=== PATIENT | male | born 1970 | race Caucasian/White ===

== ENCOUNTER → 2017-05-24 | Outpatient (CLI) | payer OTHER ==
[2017-05-24 09:35] LABS: BASO % 0.5 %; BASO ABS # 0.03 K/uL (0-0.2); COMPLETE YES; EOS % 2.2 %; HEMATOCRIT 44.2 % (42-52); IG% 0.5 %; LYMPH % 24.5 %; LYMPH ABS # 1.58 K/uL (1.2-3.4); MEAN CELL VOLUME 86.8 fL (80-100); MEAN CORPUSCULAR HEMOGLOBIN 30.1 pg (25-34); MEAN CORPUSCULAR HGB CONC 34.6 g/dl (32-36); MEAN PLATELET VOLUME 10.1 fL (7.4-10.4); MONO % 9.4 %; NEUT % 62.9 %; PLATELET COUNT 269 K/uL (130-400); RED BLOOD COUNT 5.09 M/uL (4.7-6.1); WHITE BLOOD COUNT 6.46 K/uL (4.8-10.8)
[2017-05-24 09:46] LABS: BLOOD UREA NITROGEN 19 mg/dl (7-18); BUN/CREATININE RATIO 20.3 (10-20); CALCIUM 8.9 mg/dl (8.5-10.1); CARBON DIOXIDE 28 mmol/L (21-32); CHLORIDE 107 mmol/L (98-107); CREATININE 0.95 mg/dl (0.60-1.40); GLUCOSE 101 mg/dl (70-99); POTASSIUM 4.3 mmol/L (3.5-5.1); SODIUM 141 mmol/L (136-145)
[2017-05-24 09:49] LABS: CHOLESTEROL 169 mg/dl (0-200); HDL CHOLESTEROL 56 mg/dl; LDL CHOLESTEROL CALCULATED 99 mg/dl; TRIGLYCERIDES 72 mg/dl (0-150); VERY LOW DENSITY LIPOPROT CALC 14 mg/dl
== END | disposition home or self-care (01) ==
LOC: C.LAB1850 07:27
PROVIDERS: ATTEND Internal Medicine
DX: M25.50 Pain in unspecified joint (principal); R79.9 Abnormal finding of blood chemistry, unspecified

== ENCOUNTER 2024-03-27 07:51 | Observation (INO) ==
--- NOTE | 2024-03-27 08:02 | Emergency Department Note ---
History of Present Illness General Chief complaint: Penis Pain Stated complaint: infection getting worse Time Seen by Provider: 03/27/24 08:00 History of Present Illness This is a 53-year-old male who presents to the emergency department via private vehicle with complaints of "pain in penis". Per review of yesterdays visit note patient was engaging in sexual intercourse on Sunday and believes sustained a small tear/laceration to the right side just proximal to the glans. Patient notes there was pain to that area as well as swelling and redness. He notes that it was traveling proximally. No urgency or frequency but does have some dysuria. Now with lower abd pain/suprapubic abd pain. No nausea, vomiting or diarrhea. Patient was here in the ED yesterday and was started on cephalexin and Bactrim. On yesterday's visit it appears ED attending did review case with urology. Patient now notes trouble urinating. Patient denies any new soaps, detergents or other substances that could have caused allergic reaction but does note that he did apply Neosporin yesterday to the wound. Home Medications Medication Instructions Recorded Confirmed Type loratadine 10 mg tablet (Claritin) 10 mg PO DAILY PRN allergy symptoms 08/28/19 03/27/24 History apremilast 30 mg tablet (Otezla) 30 mg PO BID 04/27/21 03/27/24 History cholecalciferol (vitamin D3) 25 25 mcg PO QAM 06/17/21 03/27/24 History mcg (1,000 unit) tablet (Vitamin D3) fluticasone propionate 50 1 - 2 spray intranasal HS 09/21/21 03/27/24 History mcg/actuation nasal spray,suspension (Flonase Allergy Relief) vitamin B complex 1 tab PO QAM 09/21/21 03/27/24 History allopurinol 300 mg tablet 300 mg PO QAM 11/22/21 03/27/24 History triamterene 37.5 1 tab PO QAM #90 tabs 03/15/23 03/27/24 Rx mg-hydrochlorothiazide 25 mg tablet esomeprazole magnesium 40 mg 40 mg PO BID 90 days #180 caps 06/26/23 03/27/24 Rx capsule,delayed release ascorbic acid (vitamin C) 500 mg 500 mg PO DAILY 03/26/24 03/27/24 History tablet (Vitamin C) cephalexin 500 mg capsule 500 mg PO Q6H 10 days #40 caps 03/26/24 03/27/24 Rx sulfamethoxazole 800 1 tab PO Q12H #20 tabs 03/26/24 03/27/24 Rx mg-trimethoprim 160 mg tablet (Bactrim DS) Allergies Allergy/AdvReac Type Severity Reaction Status Date / Time No Known Drug Allergies Allergy Verified 03/27/24 10:37 Past Med/Surg History Problem List (Updated 03/27/24 @ 11:19 by Taj Joe MD) Penile cellulitis (Acute) Pain in penis (Acute) Cellulitis (Acute) Current use of proton pump inhibitor Psoriatic arthritis History of colon polyps Psoriasis Hyperglycemia Tubular adenoma of colon Hypertension Allergic rhinitis Obstructive sleep apnea Vitamin D deficiency Joint pain of lower extremity Encounter for pre-operative examination Reflux esophagitis GERD (gastroesophageal reflux disease) Medical History (Updated 03/27/24 @ 11:19 by Taj Joe MD) Gout Hx of colonic polyp History of COVID-19 (NO CURRENT SYMPTOMS) Hypertension Sleep apnea CPAP Surgical History H/O foot surgery RT (HAMMERTOE REPAIR) [place] teeth removed H/O wrist surgery RT History of colonoscopy (~08/2018) History of esophagogastroduodenoscopy (EGD) (~2012) History of endoscopic sinus surgery + SEPTAL DEVIATION REPAIRED Family History Father Family history of diabetes mellitus Family hx colonic polyps Psoriasis Brother Gout Family history of diabetes mellitus Family/Other Colorectal cancer Grandmother (Maternal) Stroke Grandmother (Paternal) Stroke Other No family history of adverse response to anesthesia Denies family history of Ovarian cancer Prostate cancer Myocardial infarction Breast cancer Lung cancer Social History Smoking Status: Former smoker Tobacco Type: Cigarettes Second Hand Exposure: No; Do You Dip or Chew Tobacco: No; Hx Alcohol Use: Yes Alcohol type: beer Hx Substance Use: No Preferred Language: Georgian Communication Ability: Effective Visual Impairment: No Limitations Hearing Ability: Normal Trust Advisor Required: No Beliefs That Will Affect Care: None marital status: Current Living Situation: Spouse current occupational status: employed current occupation: [employer] Feels Safe at Home: Yes Childhood Exposure to Second-Hand Smoke: No Dental Care, Regularly: Yes Physical Activity Frequency: Does not Exercise Seatbelt Use: always Sunscreen Use: Yes Assistive Devices: CPAP and Glasses Review of Systems A total of 10 systems reviewed and were otherwise negative Physical Exam Vital Signs Vital Signs - 24 hr 03/27/24 07:52 03/27/24 07:57 03/27/24 11:28 Temperature 37.0 C Temperature Source Temporal Artery Scan Pulse Rate 103 H Pulse Rate [Apical] 63 82 Respiratory Rate 18 18 18 Respiratory Effort / Characteristics Non-Labored Spontaneous Non-Labored Spontaneous Respiratory Depth Normal Normal Respiratory Pattern Regular Regular Blood Pressure 155/92 H Blood Pressure [Right Arm] 129/87 Blood Pressure Mean 113 Blood Pressure Mean [Right Arm] 101 Blood Pressure Position [Right Arm] Lying Pulse Oximetry 94 95 97 Oxygen Delivery Method Room Air Room Air Room Air Sepsis New/Unexplained Change in Mental Status No Sepsis Action Taken by Nursing No Action Required 03/27/24 12:56 Temperature Temperature Source Pulse Rate Pulse Rate [Apical] 78 Respiratory Rate 18 Respiratory Effort / Characteristics Non-Labored Spontaneous Respiratory Depth Normal Respiratory Pattern Regular Blood Pressure Blood Pressure [Right Arm] 126/84 Blood Pressure Mean Blood Pressure Mean [Right Arm] 98 Blood Pressure Position [Right Arm] Lying Pulse Oximetry 98 Oxygen Delivery Method Room Air Sepsis New/Unexplained Change in Mental Status Sepsis Action Taken by Nursing VITAL SIGNS - Vital signs and nursing notes were reviewed. Stable and afebrile. GENERAL -53-year-old male appearing his stated age who is in no acute distress. Communicates well with provider and answers questions appropriately. 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 The penis is circumferentially edematous, erythematous tracking from the glans proximal to the base of the penis. There is a small, approximately 2.5 mm in diameter skin defect to the right distal penis just proximal to the glans. There is no purulence. HEAD - NC/AT. EYES - Sclera anicteric. NECK - No nuchal rigidity. LUNGS - CTA CARDIAC - RRR ABDOMEN - Abdominal contour normal without pulsations or visible masses. BS normoactive all four quadrants. Tenderness in the suprapubic region noted to palpation. No guarding or rigidity. No palpable masses, hepatosplenomegaly, or ascites noted. GUthere is tenderness to palpation overlying the penile region but testicles are nontender. Scrotum is unremarkable and appears to be uninvolved in regard to the edema and erythema involving the penis. PSYCH -alert, oriented and pleasant on exam Course Administered Medications Discontinued Medications Piperacillin Sod/Tazobactam Sod (Zosyn) 4.5 gm in 100 mls @ 200 mls/hr IV NOW ONE Stop: 03/27/24 09:14 Last Infusion: 03/27/24 09:40 Dose: Infused Documented By: Admin: 03/27/24 09:06 Dose: 200 mls/hr Documented By: BHAVESH Ioversol (Optiray 320 100ml) 94 ml IV ONCE ONE Stop: 03/27/24 09:46 Last Admin: 03/27/24 09:45 Dose: 94 ml Documented By: SHIRLEY Medical Decision Making Laboratory Data 03/27/24 08:17 03/27/24 08:17 Lab Results 03/27/24 03/27/24 03/27/24 Range/Units 08:17 08:30 11:26 WBC 7.72 (4.8-10.8) K/ul RBC 5.06 (4.70-6.10) M/uL Hgb 14.7 (14.0-18.0) g/dl Hct 42.9 (42.0-52.0) % MCV 84.8 (80.0-100.0) fL MCH 29.1 (25.0-34.0) pg MCHC 34.3 (32.0-36.0) g/dL RDW Std Deviation 40.7 (36.4-46.3) fL RDW Coeff of [place] 13.2 (11.5-14.5) % Plt Count 294 (130-400) K/uL MPV 9.6 (9.4-12.4) fL Immature Gran % (Auto) 0.6 % Neut % (Auto) 70.0 % Lymph % (Auto) 13.5 % [place] % (Auto) 14.1 % Eos % (Auto) 1.0 % Baso % (Auto) 0.8 % Neut # (Auto) 5.40 (1.40-6.50) K/uL Lymph # (Auto) 1.04 L (1.20-3.40) K/uL [place] # (Auto) 1.09 H (0.11-0.59) K/uL Eos # (Auto) 0.08 (0.00-0.50) K/uL Baso # (Auto) 0.06 (0.00-0.20) K/uL Immature Gran # (Auto) 0.05 (0.01-0.20) K/uL Sodium 137 (136-145) mmol/L Potassium 3.5 (3.5-5.1) mmol/L Chloride 103 (98-107) mmol/L Carbon Dioxide 26 (21-32) mmol/L Anion Gap 8 (3-11) BUN 17 (6-23) mg/dl Creatinine 1.00 (0.6-1.4) mg/dl Est Cr Clr Drug Dosing 121.1 ml/min Est GFR ( Amer) 99.8 ml/min Est GFR (Non-Af Amer) 86.2 ml/min BUN/Creatinine Ratio 17.0 (10-20) Glucose 120 H (70-99(Fasting)) mg/dl Lactate 1.3 (0.4-2.0) mmol/L Calcium 9.7 (8.6-10.3) mg/dl Total Bilirubin 0.6 (0.2-1.0) mg/dl AST 21 (13-39) U/L ALT 24 (7-52) U/L Alkaline Phosphatase 73 (34-104) U/L C-Reactive Protein 3.27 H (0-0.5) mg/dl Total Protein 7.3 (6.0-8.3) gm/dl Albumin 4.4 (3.4-5.0) gm/dl Globulin 2.9 (2.5-4.0) gm/dl Albumin/Globulin Ratio 1.5 (0.9-2) Procalcitonin 0.12 (0-0.5) ng/ml Urine Color Urine Appearance (Clear) Urine pH (4.5-7.5) Ur Specific [place] (1.000-1.030) Urine Protein (Negative) Urine Glucose (UA) (Negative) Urine Ketones (Negative) Urine Blood (Negative) Urine Nitrite (Negative) Urine Bilirubin (Negative) Urine Urobilinogen (Negative) Ur Leukocyte Esterase (Negative) Nasal Screen MRSA (PCR) Negative (Negative) 03/27/24 Range/Units Unknown WBC (4.8-10.8) K/ul RBC (4.70-6.10) M/uL Hgb (14.0-18.0) g/dl Hct (42.0-52.0) % MCV (80.0-100.0) fL MCH (25.0-34.0) pg MCHC (32.0-36.0) g/dL RDW Std Deviation (36.4-46.3) fL RDW Coeff of [place] (11.5-14.5) % Plt Count (130-400) K/uL MPV (9.4-12.4) fL Immature Gran % (Auto) % Neut % (Auto) % Lymph % (Auto) % [place] % (Auto) % Eos % (Auto) % Baso % (Auto) % Neut # (Auto) (1.40-6.50) K/uL Lymph # (Auto) (1.20-3.40) K/uL [place] # (Auto) (0.11-0.59) K/uL Eos # (Auto) (0.00-0.50) K/uL Baso # (Auto) (0.00-0.20) K/uL Immature Gran # (Auto) (0.01-0.20) K/uL Sodium (136-145) mmol/L Potassium (3.5-5.1) mmol/L Chloride (98-107) mmol/L Carbon Dioxide (21-32) mmol/L Anion Gap (3-11) BUN (6-23) mg/dl Creatinine (0.6-1.4) mg/dl Est Cr Clr Drug Dosing ml/min Est GFR ( Amer) ml/min Est GFR (Non-Af Amer) ml/min BUN/Creatinine Ratio (10-20) Glucose (70-99(Fasting)) mg/dl Lactate (0.4-2.0) mmol/L Calcium (8.6-10.3) mg/dl Total Bilirubin (0.2-1.0) mg/dl AST (13-39) U/L ALT (7-52) U/L Alkaline Phosphatase (34-104) U/L C-Reactive Protein (0-0.5) mg/dl Total Protein (6.0-8.3) gm/dl Albumin (3.4-5.0) gm/dl Globulin (2.5-4.0) gm/dl Albumin/Globulin Ratio (0.9-2) Procalcitonin (0-0.5) ng/ml Urine Color Yellow Urine Appearance Clear (Clear) Urine pH 7.0 (4.5-7.5) Ur Specific [place] 1.011 (1.000-1.030) Urine Protein Negative (Negative) Urine Glucose (UA) Negative (Negative) Urine Ketones Negative (Negative) Urine Blood Negative (Negative) Urine Nitrite Negative (Negative) Urine Bilirubin Negative (Negative) Urine Urobilinogen Negative (Negative) Ur Leukocyte Esterase Negative (Negative) Nasal Screen MRSA (PCR) (Negative) Imaging Data Radiologist's Impression: Pelvis CT 03/27/24 08:10 CT pelvis w/IV con only CLINICAL HISTORY: Penile edema, erythema, infection, lower abd pain TECHNIQUE: Helical axial images of the pelvis were obtained and displayed at 5 and 1 mm intervals. Automated dose lowering techniques and/or adjustment according to patient size were utilized for this exam. This exam was performed with intravenous contrast. CT DOSE: 1403.02 mGy.cm COMPARISON: None available at the time of this dictation. FINDINGS: Bladder: Unremarkable. Reproductive organs: Edema is seen about the penile shaft without drainable fluid collection. Bowel: Unremarkable. Lymph nodes Pelvic: Prominent subcentimeter inguinal nodes are noted. Mesenteric: Unremarkable. Peritoneum: Normal Vessels: Unremarkable. Abdominal wall: Right fat-containing inguinal hernia. Bones: Degenerative changes in the visualized spine. IMPRESSION: Soft tissue edema is seen about the penile shaft without drainable fluid collection. Subcentimeter inguinal lymph nodes are nonspecific but may be reactive. ACT 112: Negative or not required by law. Electronically signed by: Dimitri Orellana M.D. 03/27/2024 10:03 AM [facility] Narrative Patient was seen and evaluated as above in room B04. Review was performed of triage nursing notes and vital signs. Previous visit was reviewed. Thorough history and physical examination was performed. Patient presents to us today with worsening penile edema, erythema in the setting of recent penile cellulitis diagnosis that was performed yesterday. He has been taking cephalexin and Bactrim as prescribed. He has had 2 doses of Bactrim and 3 doses of cephalexin thus far. Last doses were this morning. He notes that since yesterday the erythema and edema is worsening and now notes some trouble urinating. Options of care were discussed with the patient. IV access was established. Labs were drawn. CT of the pelvis with IV contrast was ordered. Postvoid residual assessed via bedside ultrasound by RN with 207 mL noted. 8:38 AM: I spoke with TRACE Shelton with urology. Will proceed with current plan as above as well as initiation of IV antibiotics such as Zosyn. Labs reveal no leukocytosis or concerning anemia. No emergent metabolic disturbance. Hyperglycemia 120. Procalcitonin 0.12. Urinalysis negative. CT scan of the pelvis is as above. Soft tissue edema is seen about the penile shaft without drainable fluid collection. Subcentimeter inguinal lymph nodes are nonspecific but may be reactive per report which I do believe clinically correlates with his presentation today. In discussion with urology, and we will proceed at this time with inpatient management, IV antibiotics. Case discussed with hospitalist service. Please refer to further documentation regarding his stay. In the evaluation and treatment of this patient the following differential diagnoses were entertained: Cellulitis, gangrene, abscess, allergic reaction, among others Impression & Plan Penile cellulitis Discharge Plan Visit Data Chief Complaint: Penis Pain Stated Complaint: infection getting worse ED Provider: Shahnaz Oliveira ED Midlevel Provider: Devon Navarrete Discharge Problem: Penile cellulitis Patient Disposition: Admitted As Inpatient Condition: Good Forms Stand Alone Forms: My [facility] unrival Prescriptions Prescriptions: No Action triamterene-hydrochlorothiazid 37.5-25 mg tablet 1 tab PO QAM Qty: 90 3RF esomeprazole magnesium 40 mg capsule,delayed release(DR/EC) 40 mg PO BID 90 Days Qty: 180 3RF Otezla 30 mg tablet 30 mg PO BID allopurinol 300 mg tablet 300 mg PO QAM loratadine [Claritin] 10 mg tablet 10 mg PO DAILY PRN (Reason: allergy symptoms) cholecalciferol (vitamin D3) [Vitamin D3] 25 mcg (1,000 unit) Tablet 25 mcg PO QAM fluticasone propionate [Flonase Allergy Relief] 50 mcg/actuation spray,suspension 1 - 2 spray INTRANASAL HS vitamin B complex Tablet 1 tab PO QAM ascorbic acid (vitamin C) [Vitamin C] 500 mg Tablet 500 mg PO DAILY sulfamethoxazole-trimethoprim [Bactrim DS] 800-160 mg tablet 1 tab PO Q12H Qty: 20 0RF Patient Comments: start date 03/26/24 x10 day supply cephalexin 500 mg capsule 500 mg PO Q6H 10 Days Qty: 40 0RF Rx Instructions: start date 03/26/24 x10 day supply Referrals Referrals: Kapil Dumont MD [Primary Care Provider] -
[2024-03-27 08:36] LABS: Basophils # (auto) 0.06 K/uL (0.00-0.20); Basophils % (auto) 0.8 %; Eosinophils # (auto) 0.08 K/uL (0.00-0.50); Hematocrit (blood only) 42.9 % (42.0-52.0); Hemoglobin 14.7 g/dl (14.0-18.0); Immature Granulocytes # (auto) 0.05 K/uL (0.01-0.20); Immature Granulocytes % (auto) 0.6 %; Lymphocytes # (auto) 1.04 K/uL (1.20-3.40); Lymphocytes % (auto) 13.5 %; Mean Corpuscular Hemoglobin 29.1 pg (25.0-34.0); Mean Corpuscular Hgb Conc 34.3 g/dL (32.0-36.0); Mean Corpuscular Volume 84.8 fL (80.0-100.0); Mean Platelet Volume 9.6 fL (9.4-12.4); Monocytes # (auto) 1.09 K/uL (0.11-0.59); Monocytes % (auto) 14.1 %; Platelet Count 294 K/uL (130-400); RDW Coefficient of Variation 13.2 % (11.5-14.5); RDW Standard Deviation 40.7 fL (36.4-46.3); Red Blood Count 5.06 M/uL (4.70-6.10); White Blood Count 7.72 K/ul (4.8-10.8)
[2024-03-27 09:01] LABS: Appearance Urine Clear (Clear); Bilirubin Urine Negative (Negative); Blood Urine Negative (Negative); Color Urine Yellow; Glucose Urine UA Negative (Negative); Ketones Urine Negative (Negative); Leukocyte Esterase Urine Negative (Negative); Nitrite Urine Negative (Negative); Protein Urine Negative (Negative); Specific Gravity Urine 1.011 (1.000-1.030); Urobilinogen Urine Negative (Negative)
[2024-03-27 09:02] LABS: Albumin Globulin Ratio 1.5 (0.9-2); Albumin Level 4.4 gm/dl (3.4-5.0); Bilirubin,Total 0.6 mg/dl (0.2-1.0); Calcium 9.7 mg/dl (8.6-10.3); Creatinine Clr Calc Pharmacy 121.1 ml/min; Est GFR (African American) 99.8 ml/min; Est GFR (Non-African American) 86.2 ml/min; Globulin 2.9 gm/dl (2.5-4.0); Potassium 3.5 mmol/L (3.5-5.1); Total Protein 7.3 gm/dl (6.0-8.3)
[2024-03-27] MEDS: PIPERACILLIN/TAZOBACTAM 4.5 GM/100 ML BAG IV ONE (09:06)
[2024-03-27] MEDS: OPTIRAY 320 100ml IV ONE (09:45)
--- NOTE | 2024-03-27 10:04 | CT Scan Report ---
CT pelvis w/IV con only CLINICAL HISTORY: Penile edema, erythema, infection, lower abd pain TECHNIQUE: Helical axial images of the pelvis were obtained and displayed at 5 and 1 mm intervals. Au tomated dose lowering techniques and/or adjustment according to patient size were utilized for this e xam. This exam was performed with intravenous contrast. CT DOSE: 1403.02 mGy.cm COMPARISON: None available at the time of this dictation. FINDINGS: Bladder: Unremarkable. Reproductive organs: Edema is seen about the penile shaft without drainable fluid collection. Bowel: Unremarkable. Lymph nodes Pelvic: Prominent subcentimeter inguinal nodes are noted. Mesenteric: Unremarkable. Peritoneum: Normal Vessels: Unremarkable. Abdominal wall: Right fat-containing inguinal hernia. Bones: Degenerative changes in the visualized spine. IMPRESSION: Soft tissue edema is seen about the penile shaft without drainable fluid collection. Subcentimeter in guinal lymph nodes are nonspecific but may be reactive. ACT 112: Negative or not required by law. Electronically signed by: Dimitri Orellana M.D. 03/27/2024 10:03 AM
--- NOTE | 2024-03-27 11:21 | History & Physical Report ---
Date of Service March 27, 2024 Assessment & Plan (1) Penile cellulitis: Plan: Failed Keflex/Bactrim MRSA nasal swab - will add MRSA coverage if this is positive Zosyn IV given in the ER, will continue to better cover anaerobes and pseudomonas (2) Psoriatic arthritis: Plan: Continue apremilast (3) Gout: Plan: No acute flare Continue allopurinol (4) Sleep apnea: Plan: CPAP HS Plan VTE Prophyalxis - Lovenox 40mg SQ daily Diet - regular Disposition - observation to med/surg Admission and Anticipated Discharge Date Admission Date: March 26, 2024 History of Present Illness Chief Complaint: Penis swelling and erythema Primary Care Provider: Kapil Dumont MD Vineet Romero is a 53 year old male who presents to the ER with penis swelling and erythema. He reports initial injury of abrasion on side of penis and pain on inside of penis occurred 6 days ago. Initialy was stable but painful. Yesterday he put Neosporin on it and suddenly became more swollen and erythematous over the course of the day. He was given Keflex and Bactrim int he ER yesterday and despite this felt it became significantly worse overnight. No pain in testicle. No fever or chills. Allergies Allergy/AdvReac Type Severity Reaction Status Date / Time No Known Drug Allergies Allergy Verified 03/27/24 10:37 Home Medications Medication Instructions Recorded Confirmed Type loratadine 10 mg tablet (Claritin) 10 mg PO DAILY PRN allergy symptoms 08/28/19 03/27/24 History apremilast 30 mg tablet (Otezla) 30 mg PO BID 04/27/21 03/27/24 History cholecalciferol (vitamin D3) 25 25 mcg PO QAM 06/17/21 03/27/24 History mcg (1,000 unit) tablet (Vitamin D3) fluticasone propionate 50 1 - 2 spray intranasal HS 09/21/21 03/27/24 History mcg/actuation nasal spray,suspension (Flonase Allergy Relief) vitamin B complex 1 tab PO QAM 09/21/21 03/27/24 History allopurinol 300 mg tablet 300 mg PO QAM 11/22/21 03/27/24 History triamterene 37.5 1 tab PO QAM #90 tabs 03/15/23 03/27/24 Rx mg-hydrochlorothiazide 25 mg tablet esomeprazole magnesium 40 mg 40 mg PO BID 90 days #180 caps 06/26/23 03/27/24 Rx capsule,delayed release ascorbic acid (vitamin C) 500 mg 500 mg PO DAILY 03/26/24 03/27/24 History tablet (Vitamin C) cephalexin 500 mg capsule 500 mg PO Q6H 10 days #40 caps 03/26/24 03/27/24 Rx sulfamethoxazole 800 1 tab PO Q12H #20 tabs 03/26/24 03/27/24 Rx mg-trimethoprim 160 mg tablet (Bactrim DS) Past Med/Surg History Problem List (Updated 03/27/24 @ 11:19 by Taj Joe MD) Penile cellulitis (Acute) Pain in penis (Acute) Cellulitis (Acute) Current use of proton pump inhibitor Psoriatic arthritis History of colon polyps Psoriasis Hyperglycemia Tubular adenoma of colon Hypertension Allergic rhinitis Obstructive sleep apnea Vitamin D deficiency Joint pain of lower extremity Encounter for pre-operative examination Reflux esophagitis GERD (gastroesophageal reflux disease) Medical History (Updated 03/27/24 @ 11:19 by Taj Joe MD) Gout Hx of colonic polyp History of COVID-19 -2019 (NO CURRENT SYMPTOMS) Hypertension Sleep apnea CPAP Surgical History H/O foot surgery RT (HAMMERTOE REPAIR) [place] teeth removed H/O wrist surgery RT History of colonoscopy (~08/2018) History of esophagogastroduodenoscopy (EGD) (~2012) History of endoscopic sinus surgery + SEPTAL DEVIATION REPAIRED Family History Father Family history of diabetes mellitus Family hx colonic polyps Psoriasis Brother Gout Family history of diabetes mellitus Family/Other Colorectal cancer Grandmother (Maternal) Stroke Grandmother (Paternal) Stroke Other No family history of adverse response to anesthesia Denies family history of Ovarian cancer Prostate cancer Myocardial infarction Breast cancer Lung cancer Social History Smoking Status: Never smoker Tobacco Type: Cigarettes Second Hand Exposure: No; Do You Dip or Chew Tobacco: No; Hx Alcohol Use: Yes Alcohol type: beer Hx Substance Use: No Preferred Language: Surinamese Communication Ability: Effective Visual Impairment: No Limitations Hearing Ability: Normal Compressor Technician Required: No Beliefs That Will Affect Care: None marital status: Current Living Situation: Spouse current occupational status: employed current occupation: [employer] Other Information That Helps Us Care for You: No Feels Safe at Home: Yes Childhood Exposure to Second-Hand Smoke: No Dental Care, Regularly: Yes Physical Activity Frequency: Does not Exercise Seatbelt Use: always Sunscreen Use: Yes Assistive Devices: CPAP and Glasses Review of Systems Review of Systems: All systems reviewed & are unremarkable except as noted in HPI & below Physical Exam Constitutional: WD/WN, vitals as above Respiratory: normal respiratory effort, lungs clear to auscultation Cardiovascular: RRR, no murmur, no edema Gastrointestinal (Abdomen): normal bowel sounds, soft, nontender, no hepatosplenomegaly Musculoskeletal: no cyanosis or clubbing, extremities motor strength 5/5 Skin: circumferential erythema and swelling around glands of penis, does not extend beyond shaft, no inguinal lymphadenopathy palpable Neurologic: moves all extremities and awake; not confused Psychiatric: A+Ox3, euthymic affect Results & Data Results & Data Vital Signs (Past 12 Hours) Vital Signs Temp Pulse Pulse Resp BP Pulse Ox O2 Del Method 03/27/24 07:57 37.0 C 103 H 18 155/92 H 95 Room Air 03/27/24 07:52 63 18 94 Room Air Laboratory Results Abnormal lab results 03/27/24 Range/Units 08:17 Lymph # (Auto) 1.04 L (1.20-3.40) K/uL [place] # (Auto) 1.09 H (0.11-0.59) K/uL Glucose 120 H (70-99(Fasting)) mg/dl Diagnostic Findings CT pelvis w/IV con only CLINICAL HISTORY: Penile edema, erythema, infection, lower abd pain TECHNIQUE: Helical axial images of the pelvis were obtained and displayed at 5 and 1 mm intervals. Automated dose lowering techniques and/or adjustment according to patient size were utilized for this exam. This exam was performed with intravenous contrast. CT DOSE: 1403.02 mGy.cm COMPARISON: None available at the time of this dictation. FINDINGS: Bladder: Unremarkable. Reproductive organs: Edema is seen about the penile shaft without drainable fluid collection. Bowel: Unremarkable. Lymph nodes Pelvic: Prominent subcentimeter inguinal nodes are noted. Mesenteric: Unremarkable. Peritoneum: Normal Vessels: Unremarkable. Abdominal wall: Right fat-containing inguinal hernia. Bones: Degenerative changes in the visualized spine. IMPRESSION: Soft tissue edema is seen about the penile shaft without drainable fluid collection. Subcentimeter inguinal lymph nodes are nonspecific but may be reactive. Medications Administered ER Medications Given: Zosyn 4.5g IV Code Status & VTE Plan Code Status Full VTE Prophylaxis Plan VTE Prophylaxis will be ordered: Yes PG Care Time/CCT Total # of Minutes Spent Total Time Spent with Patient: Total time spent is greater than 50% in coordination of care (as documented) at patient's floor/unit and/or counseling patient: Coding Level of Care Code 43748 INT INP/OBS CARE 255MIN Diagnoses Penile cellulitis N48.22 Psoriatic arthritis L40.50 Gout M10.9 Sleep apnea G47.30
[2024-03-27 11:40] LABS: C Reactive Protein 3.27 mg/dl (0-0.5)
--- NOTE | 2024-03-27 12:01 | Urology Consultation ---
Date of Consultation March 27, 2024 Assessment & Plan (1) Penile cellulitis: Plan 53yo/M who presented with penile pain and small laceration to penis which started last Sunday. He was seen in the ED yesterday and started on Bactrim/Keflex. Returned to the ED today due to worsening penile erythema and edema. Patient admitted to medicine service with penile cellulitis. CT pelvis demonstrated soft tissue edema in the penile shaft without drainable fluid collection. No acute urological intervention warranted. Blood cultures are pending. He is on Zosyn. He is voiding spontaneously, continue to monitor. Bladder scan PRN. Continue supportive care and pain management as needed. Can use ice as needed for swelling. Continue antibiotics. Urology will follow. History of Present Illness History of Present Illness 53-year-old male who presents to the ED today 03/27 with complaints of penile pain. Patient was seen in the ED yesterday 03/26 for penile pain. Per chart review, patient was engaging in sexual intercourse on Sunday and believes he sustained a small tear/laceration to the right side just proximal to the glans. Patient notes there was pain to that area as well as swelling and redness. He was started on Bactrim and Cephalexin and discharged home. Pt reports putting Neosporin on laceration yesterday morning and now reports worsening erythema and edema. In the ED today he was afebrile and hemodynamically stable. Labs show no leukocytosis and normal renal function. He also endorses difficulty with urination. He was bladder scanned for 207cc. Urinalysis was unremarkable. CT pelvis demonstrated soft tissue edema in the penile shaft without drainable fluid collection. Pt was given dose of IV Zosyn in the ED. Blood cultures collected and pending. Patient admitted to medicine service. Patient seen at bedside in the ED. Awake, resting in bed on arrival. No acute distress. at bedside. Denies fever, chills, nausea, vomiting. Denies hematuria. Reports some dysuria and spraying stream. Reports worsening penile erythema and edema. He did use Neosporin to the laceration but does not feel this is a reaction to that. He has used in the past without issue. Denies prior urological history. Allergies Allergy/AdvReac Type Severity Reaction Status Date / Time No Known Drug Allergies Allergy Verified 03/27/24 10:37 Home Medications Medication Instructions Recorded Confirmed Type loratadine 10 mg tablet (Claritin) 10 mg PO DAILY PRN allergy symptoms 08/28/19 03/27/24 History apremilast 30 mg tablet (Otezla) 30 mg PO BID 04/27/21 03/27/24 History cholecalciferol (vitamin D3) 25 25 mcg PO QAM 06/17/21 03/27/24 History mcg (1,000 unit) tablet (Vitamin D3) fluticasone propionate 50 1 - 2 spray intranasal HS 09/21/21 03/27/24 History mcg/actuation nasal spray,suspension (Flonase Allergy Relief) vitamin B complex 1 tab PO QAM 09/21/21 03/27/24 History allopurinol 300 mg tablet 300 mg PO QAM 11/22/21 03/27/24 History triamterene 37.5 1 tab PO QAM #90 tabs 03/15/23 03/27/24 Rx mg-hydrochlorothiazide 25 mg tablet esomeprazole magnesium 40 mg 40 mg PO BID 90 days #180 caps 06/26/23 03/27/24 Rx capsule,delayed release ascorbic acid (vitamin C) 500 mg 500 mg PO DAILY 03/26/24 03/27/24 History tablet (Vitamin C) cephalexin 500 mg capsule 500 mg PO Q6H 10 days #40 caps 03/26/24 03/27/24 Rx sulfamethoxazole 800 1 tab PO Q12H #20 tabs 03/26/24 03/27/24 Rx mg-trimethoprim 160 mg tablet (Bactrim DS) Patient History Medical History (Updated 03/27/24 @ 11:19 by Taj Joe MD) Gout Hx of colonic polyp History of COVID-19 (NO CURRENT SYMPTOMS) Hypertension Sleep apnea CPAP Surgical History H/O foot surgery RT (HAMMERTOE REPAIR) [place] teeth removed H/O wrist surgery RT History of colonoscopy (~08/2018) History of esophagogastroduodenoscopy (EGD) (~2012) History of endoscopic sinus surgery + SEPTAL DEVIATION REPAIRED Family History Father Family history of diabetes mellitus Family hx colonic polyps Psoriasis Brother Gout Family history of diabetes mellitus Family/Other Colorectal cancer Grandmother (Maternal) Stroke Grandmother (Paternal) Stroke Other No family history of adverse response to anesthesia Denies family history of Ovarian cancer Prostate cancer Myocardial infarction Breast cancer Lung cancer Social History Smoking Status: Former smoker Tobacco Type: Cigarettes Second Hand Exposure: No; Do You Dip or Chew Tobacco: No; Hx Alcohol Use: Yes Alcohol type: beer Hx Substance Use: No Preferred Language: Portuguese Communication Ability: Effective Visual Impairment: No Limitations Hearing Ability: Normal Honeycomb Decapper Required: No Beliefs That Will Affect Care: None marital status: Current Living Situation: Spouse current occupational status: employed current occupation: [employer] Feels Safe at Home: Yes Childhood Exposure to Second-Hand Smoke: No Dental Care, Regularly: Yes Physical Activity Frequency: Does not Exercise Seatbelt Use: always Sunscreen Use: Yes Assistive Devices: CPAP and Glasses Review of Systems Review of Systems: All systems reviewed & are unremarkable except as noted in HPI & below Physical Exam Constitutional: well developed and well nourished; no acute distress Respiratory: normal respiratory effort; no respiratory distress and no labored breathing Gastrointestinal (Abdomen): Inspection/Auscultation: abdomen normal to inspection Musculoskeletal: Head/Neck/Chest: normocephalic Skin: Warm and dry Neurologic: moves all extremities and awake Psychiatric: A+Ox3, euthymic affect Genitourinary: Penis is circumferentially edematous and erythematous. Small what appears to be a skin laceration to the right distal penis just proximal to the glans. There is no drainage or bleeding. No ecchymosis. No tenderness with palpation. No scrotal or testicular pain. No scrotal erythema or edema. Results & Data Vital Signs (Past 12 Hours) Vital Signs Temp Pulse Pulse Resp BP BP Pulse Ox 03/27/24 11:28 82 18 129/87 97 03/27/24 07:57 37.0 C 103 H 18 155/92 H 95 03/27/24 07:52 63 18 94 O2 Del Method 03/27/24 11:28 Room Air 03/27/24 07:57 Room Air 03/27/24 07:52 Room Air PG Care Time/CCT Total # of Minutes Spent Total Time Spent with Patient: Total time spent is greater than 50% in coordination of care (as documented) at patient's floor/unit and/or counseling patient: Coding Level of Care Code 62091 IN/OBS CONSULT LVL 3,45M Diagnoses Penile cellulitis N48.22
[2024-03-27] MEDS: PIPERACILLIN/TAZOBACTAM 4.5 GM in DEXTROSE 5% MINI-B 100 ML IV SCH (17:03)
[2024-03-27] MEDS: PANTOprazole 40 MG TAB PO SCH (20:38)
[2024-03-28] MEDS: allopurinoL 300 MG TAB PO SCH (08:59)
[2024-03-28] MEDS: TRIAMTERENE/HCTZ 37.5/25MG TAB PO SCH (09:00)
--- NOTE | 2024-03-28 11:44 | Discharge Summary ---
Date of Service March 28, 2024 Admission HPI Per Admitting Provider Vineet Romero is a 53 year old male who presents to the ER with penis swelling and erythema. He reports initial injury of abrasion on side of penis and pain on inside of penis occurred 6 days ago. Initialy was stable but painful. Yesterday he put Neosporin on it and suddenly became more swollen and erythematous over the course of the day. He was given Keflex and Bactrim int he ER yesterday and despite this felt it became significantly worse overnight. No pain in testicle. No fever or chills. Principal Diagnosis Penis celllulitis Discharge Exam GENERAL: 53 yo well-developed, well-nourished WM. No distress. LUNGS: Clear to auscultation bilaterally. No accessory muscle use. No W/R/R. CARDIOVASCULAR: Regular rate and rhythm. ABDOMEN: Soft, non-tender and non-distended. No palpable masses. Bowel sounds normoactive x 4 quad. : circumcised penis without any marked erythema or swelling appreciated. PSYCHIATRIC: Cooperative. Appropriate mood and affect. SKIN: Warm, dry, intact. No rashes or lesions. Discharge Data Allergies Allergy/AdvReac Type Severity Reaction Status Date / Time No Known Drug Allergies Allergy Verified 03/27/24 10:37 Consultations 03/27/24 10:16 ED Decision to Admit Stat Ordered Studies Pelvis CT 03/27/24 08:10 CT pelvis w/IV con only CLINICAL HISTORY: Penile edema, erythema, infection, lower abd pain TECHNIQUE: Helical axial images of the pelvis were obtained and displayed at 5 and 1 mm intervals. Automated dose lowering techniques and/or adjustment according to patient size were utilized for this exam. This exam was performed with intravenous contrast. CT DOSE: 1403.02 mGy.cm COMPARISON: None available at the time of this dictation. FINDINGS: Bladder: Unremarkable. Reproductive organs: Edema is seen about the penile shaft without drainable fluid collection. Bowel: Unremarkable. Lymph nodes Pelvic: Prominent subcentimeter inguinal nodes are noted. Mesenteric: Unremarkable. Peritoneum: Normal Vessels: Unremarkable. Abdominal wall: Right fat-containing inguinal hernia. Bones: Degenerative changes in the visualized spine. IMPRESSION: Soft tissue edema is seen about the penile shaft without drainable fluid collection. Subcentimeter inguinal lymph nodes are nonspecific but may be re active. ACT 112: Negative or not required by law. Electronically signed by: Dimitri Orellana M.D. 03/27/2024 10:03 AM Hospital Course (1) Penile cellulitis: Acute/stable - Failed Keflex and Bactrim as an outpatient - Admitted and placed on IV Zosyn with marked improvement - Will transition to oral Augmentin and complete 10-day course - Follow up with PCP, notify of any worsening symptoms, swelling or redness, in which case I would advise changing him to Cipro for pseudomonal coverage (2) Psoriatic arthritis: Chronic/stable - Continue apremilast (3) Gout: Chronic/stable - No acute flare - Continue allopurinol (4) Sleep apnea: Chronic/stable - CPAP HS Plan Patient has shown significant improvement in his symptoms. Will transition to course of Augmentin to complete as an outpatient. Follow up with PCP and notify of any new or worsening symptoms. Follow up with PCP within 5-7 days of discharge. Plan d/w Dr. East. Total Time Total Time Spent Total Time Spent (In Minutes): 35 minutes Discharge Plan Discharge Items Patient Disposition: Home - Self-Care Reason For Visit: PENIS CELLULITIS Discharge Diagnosis: penis cellulitis Condition on Discharge: Good Activity: Resume your previous activity Non-emergency contact: Primary Care Provider Call non-emergency contact if: you have any medication questions, your symptoms worsen and your temperature is above 101 Follow-up/Referrals: Kapil Dumont MD [Primary Care Provider] - Diet: Regular Addtl Attending Provider Instructions: 1. Take all medications as directed. 2. Complete course of Augmentin (Amoxicillin-Clav acid) twice a day as prescribed. Do not stop early. You should have no medication left over. Take with food or milk to minimize upset stomach. 3. Follow up with PCP within 1 week. Notify immediately if any new or worsening symptoms including fever, redness, swelling or inability to urinate. 4. Call 911 or go to the ER in the event of a medical emergency. Pending Studies at Discharge: No Stand-Alone Forms: My [employer], Smoking Cessation Medications and DC Order Prescriptions: New amoxicillin-pot clavulanate 875-125 mg tablet 1 tab PO BID Qty: 20 0RF Continued triamterene-hydrochlorothiazid 37.5-25 mg tablet 1 tab PO QAM Qty: 90 3RF esomeprazole magnesium 40 mg capsule,delayed release(DR/EC) 40 mg PO BID 90 Days Qty: 180 3RF Otezla 30 mg tablet 30 mg PO BID allopurinol 300 mg tablet 300 mg PO QAM loratadine [Claritin] 10 mg tablet 10 mg PO DAILY PRN (Reason: allergy symptoms) cholecalciferol (vitamin D3) [Vitamin D3] 25 mcg (1,000 unit) Tablet 25 mcg PO QAM fluticasone propionate [Flonase Allergy Relief] 50 mcg/actuation spray,suspension 1 - 2 spray INTRANASAL HS vitamin B complex Tablet 1 tab PO QAM ascorbic acid (vitamin C) [Vitamin C] 500 mg Tablet 500 mg PO DAILY Discontinued sulfamethoxazole-trimethoprim [Bactrim DS] 800-160 mg tablet 1 tab PO Q12H Qty: 20 0RF Patient Comments: start date 03/26/24 x10 day supply cephalexin 500 mg capsule 500 mg PO Q6H 10 Days Qty: 40 0RF Rx Instructions: start date 03/26/24 x10 day supply Discharge Orders: Discharge Order (Routine); Ordered 03/28/24 Ordered By: Ashley Gunderson Admission Data Admit Date/Time: 03/27/24 11:12 Attending Provider: Terrance East Admit Provider: Taj Joe Primary Care Provider: Kapil Dumont Other Providers: Taj Joe Coding Level of Care Code 93305 INP/OBS DISCH >30 MIN Diagnoses Penile cellulitis N48.22 Psoriatic arthritis L40.50 Gout M10.9 Sleep apnea G47.30
--- NOTE | 2024-03-28 15:06 | Urology Progress Note ---
Date of Service March 28, 2024 Assessment & Plan (1) Penile cellulitis: Plan 53yo/M who presented with penile pain and small laceration to penis which started last Sunday. He was seen in the ED 03/26 and started on Bactrim/Keflex. Returned to the ED 03/27 due to worsening penile erythema and edema. CT pelvis demonstrated soft tissue edema in the penile shaft without drainable fluid collection. Patient admitted to medicine service with penile cellulitis. Significant improvement in symptoms today. Remains afebrile and hemodynamically stable. Blood cultures prelim no growth. He is on Zosyn. He is voiding spontaneously and feels he is emptying his bladder well. OK for d/c from standpoint Continue supportive care and pain management as needed. Can use ice as needed for swelling. Continue antibiotics for a total of 10-14 days. I offered to arrange an outpatient follow-up with our service however patient prefers to follow-up on an as needed basis. Urology will sign-off. Please call with any further questions or concerns. Admission and Anticipated Discharge Date Admission Date: March 27, 2024 Subjective Pt seen at bedside today No acute distress Reports significant improvement in edema and erythema Voiding without issue No hematuria or dysuria No fevers Review of Systems Constitutional: as per Subjective / HPI Genitourinary: + as per Subjective / HPI Physical Exam Constitutional: well developed and well nourished; no acute distress Respiratory: normal respiratory effort; no respiratory distress and no labored breathing Neurologic: moves all extremities and awake Psychiatric: A+Ox3, euthymic affect Genitourinary: Circumcised. Significant improvement in penile edema and erythema compared to yesterday. Small scab to the right distal penis just proximal to the glans. There is no drainage or bleeding. No ecchymosis. No tenderness with palpation. No scrotal or testicular pain. No scrotal erythema or edema. Results & Data Vital Signs (Past 12 Hours) Vital Signs Temp Pulse Resp BP Pulse Ox O2 Del Method 03/28/24 07:44 36.9 C 80 16 127/87 98 Room Air PG Care Time/CCT Total # of Minutes Spent Total Time Spent with Patient: Total time spent is greater than 50% in coordination of care (as documented) at patient's floor/unit and/or counseling patient: Coding Level of Care Code 65424 SUB INP/OBS CARE 2/35MIN Diagnoses Penile cellulitis N48.22
== END 2024-03-28 13:32 | disposition home or self-care (01) ==
LOC: 3W 07:51 → ED 07:51 → SUATTDRO 11:12 → 3W 15:55